=== PATIENT | female | born 1990 | race Caucasian/White ===

== ENCOUNTER 2022-09-04 07:11 | Inpatient (IN) ==
[~2022-09-04 07:11] MED LIST: PEPCID 20 MG VIAL ONE; PITOCIN ONE; REGLAN INJ 10 MG VIAL ONE; ZOFRAN INJ 4 MG VIAL ONE
[2022-09-04] MEDS ORDERED: REGLAN INJ 10 MG VIAL IVP PRN ×2 (07:14→09:40)
[2022-09-04] MEDS ORDERED: ANCEF VIAL 1 GRAM IVP ONE (07:14)
[2022-09-04] MEDS ORDERED: PITOCIN IVP ONE (07:14)
[2022-09-04] MEDS ORDERED: LR 1,000 ML IV 1,000 ML IV ONE ×2 (07:17→07:27)
[2022-09-04] MEDS ORDERED: NS 100 ML IV 100 ML ONE (07:17)
[2022-09-04] MEDS ORDERED: PITOCIN ONE (07:24)
[2022-09-04] MEDS ORDERED: DILAUDID INJ ONE (07:24)
[2022-09-04] MEDS ORDERED: EPHEDRINE SULFATE INJ ONE (07:24)
[2022-09-04] MEDS ORDERED: REGLAN INJ 10 MG VIAL ONE (07:24)
[2022-09-04] MEDS ORDERED: ZOFRAN INJ 4 MG VIAL ONE (07:24)
[2022-09-04] MEDS ORDERED: MARCAINE SPINAL ONE (07:25)
[2022-09-04] MEDS ORDERED: D5 1/2 NS 1,000 mL + PITOCIN 20 UNITS/L IV 20 UNITS/1,000 ML BAG IV ONE (07:27)
[2022-09-04] MEDS ORDERED: XYLOCAINE 2 % (PLAIN) ONE (07:28)
[2022-09-04] MEDS ORDERED: D5 1/2 NS 1,000 ML 1,000 ML IV SCH (08:00)
[2022-09-04 08:04] LABS: BASOPHILS % (AUTO) 0.3 % (0.2-1.0); EOSINOPHILS # (AUTO) 0.3 x10^3/uL (0.0-0.2); EOSINOPHILS % (AUTO) 2.7 % (0.9-2.9); HEMATOCRIT 36.3 % (36.0-47.0); HEMOGLOBIN 12.3 g/dL (12.0-16.0); LYMPHOCYTES # (AUTO) 2.8 X10^3/uL (1.3-2.9); LYMPHOCYTES % (AUTO) 24.5 % (21.0-51.0); MEAN CORPUSCULAR HEMOGLOBIN 29.8 pg (27.0-34.0); MEAN CORPUSCULAR HGB CONC 33.9 g/dL (33.0-35.0); MEAN CORPUSCULAR VOLUME 88.1 fL (80.0-100.0); MEAN PLATELET VOLUME 8.7 fL (7.4-11.0); MONOCYTES # (AUTO) 0.6 x10^3/uL (0.3-0.8); MONOCYTES % (AUTO) 5.4 % (0.0-13.0); NEUTROPHILS # (AUTO) 7.7 x10^3/uL (2.2-4.8); NEUTROPHILS % (AUTO) 67.1 % (42.0-75.0); RED BLOOD COUNT 4.12 X10^6/uL (3.5-5.4); RED CELL DISTRIBUTION WIDTH 14.3 % (11.6-16.5); WHITE BLOOD COUNT 11.5 X10^3/uL (3.6-10.0)
[2022-09-04] MEDS ORDERED: PEPCID 20 MG VIAL ONE (08:16)
[2022-09-04 08:20] LABS: BLOOD UREA NITROGEN 12 mg/dL (7-18); CALCIUM 8.4 mg/dL (8.5-10.1); CARBON DIOXIDE 26.3 mmol/L (21-32); CHLORIDE 100 mmol/L (98-107); CREATININE 0.56 mg/dL (0.55-1.02); SODIUM 134 mmol/L (136-145); eGFR NON BLACK RACES > 60 (>60)
[2022-09-04] MEDS ORDERED: NEO-SYNEPHRINE INJ ONE (09:16)
[2022-09-04] MEDS ORDERED: BACTROBAN TOPICAL OINT ONE (09:19)
[2022-09-04] MEDS ORDERED: BENADRYL INJ 50 MG VIAL IVP PRN (09:40)
[2022-09-04] MEDS ORDERED: ZOFRAN INJ 4 MG VIAL IVP PRN (09:40)
[2022-09-04] MEDS ORDERED: BARHEMSYS INJ IVP PRN (09:40)
[2022-09-04 10:12] LABS: BILIRUBIN,URINE NEGATIVE (NEGATIVE); BLOOD/HEMOGLOBIN,URINE 1+ (NEGATIVE); GLUCOSE, URINE NEGATIVE (NEGATIVE); KETONES,URINE 3+ (NEGATIVE); LEUKOCYTE ESTERASE ,URINE NEGATIVE (NEGATIVE); NITRITES,URINE NEGATIVE (NEGATIVE); PROTEIN,URINE 3+ (NEGATIVE); UROBILINOGEN,URINE NORMAL (NORMAL)
[2022-09-04 10:35] LABS: APPEARANCE,URINE CLEAR (CLEAR); COLOR,URINE YELLOW (YELLOW)
[2022-09-04 10:36] LABS: BACTERIA,URINE NEGATIVE /HPF (NEGATIVE); RBC,URINE 0-2 /HPF (0-3); SQUAMOUS EPITHELIAL CELL,UR FEW /HPF (NEGATIVE)
[2022-09-04] MEDS ORDERED: ADACEL or BOOSTRIX TDaP VACCINE IM ONE (10:48)
[2022-09-04] MEDS ORDERED: D5 1/2 NS 1,000 ML 1,000 ML with PITOCIN 20 UNITS IV SCH ×2 (10:48)
[2022-09-04] MEDS ORDERED: MYLICON TAB 80 MG CHEW PO PRN (10:48)
[2022-09-04] MEDS ORDERED: DIFLUCAN 200 MG IV PREMIX* 200 MG/100 ML BAG IV SCH (12:00)
[2022-09-04] MEDS ORDERED: STERILE WATER IRRIGATION IR ONE (12:47)
[2022-09-04] MEDS ORDERED: COLACE CAP 100 MG PO SCH (21:00)
[2022-09-04] MEDS: MOTRIN TAB 800 MG PO PRN (22:21)
[2022-09-05 04:45] LABS: HEMATOCRIT 28.8 % (36.0-47.0)
[2022-09-05 04:53] LABS: HEMOGLOBIN 9.8 g/dL (12.0-16.0)
[2022-09-05] MEDS ORDERED: PERCOCET TAB 5/325 MG PO PRN (07:00)
[2022-09-05] MEDS ORDERED: BETADINE SOLN ONE (07:44)
[2022-09-05] MEDS ORDERED: BETADINE SOLN TOP PRN (07:46)
[2022-09-05] MEDS: DIFLUCAN PO SCH (08:55)
[2022-09-05] MEDS ORDERED: DIFLUCAN ONE (08:55)
[2022-09-05] MEDS: COLACE CAP 100 MG PO SCH ×2 (08:56→21:32)
[2022-09-05] MEDS: PRENATAL PLUS PO SCH (08:56)
[2022-09-05] MEDS ORDERED: ADACEL or BOOSTRIX TDaP VACCINE IM ONE (14:11)
[2022-09-05] MEDS: BACTROBAN TOPICAL OINT TOP SCH ×2 (15:16→21:33)
[2022-09-05] MEDS: FERROUS GLUCONATE PO SCH (17:24)
[2022-09-06] MEDS: BACTROBAN TOPICAL OINT TOP SCH ×3 (05:59→21:00)
[2022-09-06] MEDS: FERROUS GLUCONATE PO SCH ×2 (06:00→17:42)
[2022-09-06] MEDS: DIFLUCAN PO SCH (09:34)
[2022-09-06] MEDS: COLACE CAP 100 MG PO SCH ×2 (09:35→20:10)
[2022-09-06] MEDS: PRENATAL PLUS PO SCH (09:35)
[2022-09-06] MEDS: MOTRIN TAB 800 MG PO PRN (15:10)
[2022-09-07] MEDS: BACTROBAN TOPICAL OINT TOP SCH (06:19)
[2022-09-07] MEDS: FERROUS GLUCONATE PO SCH (06:19)
[2022-09-07] MEDS: PRENATAL PLUS PO SCH (09:32)
[2022-09-07] MEDS: DIFLUCAN PO SCH (09:32)
[2022-09-07] MEDS: COLACE CAP 100 MG PO SCH (09:32)
[2022-09-07 13:52] VITALS: BP 171/91
== END 2022-09-07 15:35 | disposition home or self-care (01) | DRG 787 ==
LOC: LD 07:11 → ICU 09:53 → MED/SURG 16:18
PROVIDERS: ADMIT Obstetrics & Gynecology Obstetrics; ATTEND Obstetrics & Gynecology Obstetrics
DX: Z3A.40 40 weeks gestation of pregnancy; O34.211 Maternal care for low transverse scar from previous cesarean delivery; N85.8 Other specified noninflammatory disorders of uterus; Z37.0 Single live birth; O99.323 Drug use complicating pregnancy, third trimester; F14.10 Cocaine abuse, uncomplicated; L30.4 Erythema intertrigo